=== PATIENT | female | born 1995 ===

== ENCOUNTER 2025-01-04 08:04 | Emergency (ER) | payer MEDICAID, SELFPAY ==
[2025-01-04 08:05] VITALS: BMI 15.4
[2025-01-04 08:10] VITALS: BP 123/76; PULSE 78; RESP 16; TEMP 36.6; O2SAT 99; BMI 14.6
--- NOTE | 2025-01-04 08:24 | PD.EDPREG ---
ED OB Contraction Preg RMI/HPI General Chief complaint: General Adult/Misc Complain Stated complaint: 7WKS W/BROWN DISCHARGE Time Seen by Provider: 01/04/25 08:14 Source: patient Arrival date/time: 01/04/25 08:04 This is a [id number]-year-old female presents emergency department complaints of brown discharge vaginal. Reports she is approximately 7 weeks gestation denies any pelvic cramping no abdominal pain. No dysuria no fever or hematuria. Related Data Previous Rx's ?Medication ?Instructions ?Recorded diphenhydramine HCl 25 mg capsule 25 mg PO TID PRN allergic reaction 06/02/20 (Benadryl) #30 caps prednisone 20 mg tablet 20 mg PO QDAY #4 tabs 06/02/20 Allergies Allergy/AdvReac Type Severity Reaction Status Date / Time No Known Allergies Allergy Verified 01/04/25 21:53 Review of Systems Review of Systems Systems Reviewed: All systems reviewed, normal except as documented Narrative Review of Systems: Gen: No fever, no chills, no weight loss EYES: No discharge, no visual changes, no pain HEENT: No ear pain, no congestion, no sore throat PULM: No shortness of breath, no cough, no congestion CV: No chest pain, no dyspnea on exertion, no palpitations GI: No nausea, no vomiting, no diarrhea, no pain, no constipation : No frequency, no urgency,? no dysuria Musc/skel: No joint pain, no back pain Skin: No rash? Psyc: No hallucinations, no depression Heme/Lymph: No easy bleeding or bruising tendencies Neuro: No weakness, no headache ED Exam Narrative Physical exam: General: Sittiing in Exam table in no acute distress, answering questions appropriately HENT: normocephalic, atraumatic, EOMI, PERRLA, moist mucous membranes Chest: chest wall is nontender Cardiac: regular rate and rhythm, normal S1 and S2, no murmurs, rubs, or gallops, capillary refill ?2 seconds Pulmonary: clear to auscultation bilaterally, no wheezing, crackles, or rhonchi Abdominal: active bowel sounds, soft, nontender, nondistended Neuro: A&OX3, CN II-XII intact, sensation grossly intact bilaterally in UE and LE. Skin: no rashes, no ecchymosis Ext: no lower extremity edema Course Quality Measures none Orders Category Date Time Status US OB <= 14 weeks fetus Stat Exams 01/04/25 08:22 Completed ABO/RH Type Stat Lab 01/04/25 08:37 Completed Beta HCG,Quantitative Stat Lab 01/04/25 08:37 Completed CBC Stat Lab 01/04/25 08:37 Completed Comprehensive Metabolic Panel Stat Lab 01/04/25 08:37 Completed Urinalysis Stat Lab 01/04/25 08:34 Completed Urine Culture Stat Lab 01/04/25 08:34 Received Vital Signs Vital signs: Vital Signs Temperature 97.9 F 01/04/25 08:10 Pulse Rate 78 01/04/25 08:10 Respiratory Rate 16 01/04/25 08:10 Blood Pressure 123/76 01/04/25 08:10 Pulse Oximetry (%) 99 01/04/25 08:10 Oxygen Delivery Method Room Air 01/04/25 08:10 OB/Uterine Contractions Patient data External records reviewed:: [facility] previous records Clinical information provided by:: patient Social determinants that could affect healthcare access:: none Patient has the following chronic illnesses:: no How is presenting disease/condition affected by chronic disease/condition?: no chronic disease Evaluation data The following diagnostics were reviewed and interpreted by me:: lab results and radiology exam(s) Lab and/or radiology exams considered but not ordered:: no Interpretation Summary: Examination: Complete OB ultrasound, less than 14 weeks, transabdominal Date and time of exam: January 04, 2025 0908 hours INDICATIONS: Vaginal bleeding beginning 2 days ago Technique: Obstetrical ultrasound images less than 14 weeks performed via transabdominal imaging Findings: Uterus 6.2 cm, pole 0.3 cm corresponds to 5 week 6 day gestational age No cardiac motion Subchorionic hemorrhage 5 x 4 x 5 mm Right ovary 2.9 cm arterial flow Left ovary 2.8 cm arterial flow IMPRESSION: Intrauterine gestation corresponding to 5 week 6 day gestational age No cardiac motion Small subchorionic hemorrhage Recommend short-term follow-up transvaginal pelvic sonography Medications / Prescriptions Medications or Prescriptions considered but not ordered:: no Medication administrations:: no Consultations Consultation(s) initiated? (list below): No Diagnosis OB Contractions Differential Diagnosis: normal delivery at term and other (uti tract infection, miscarriage, threatened , tubal ) Most likely diagnosis given after review of the tests above:: Subchorionic hemorrhage Admission Indicated Admission indicated?: not indicated Explain why admission is indicated or not indicated:: no Admission Request Was there a request for admission?: No Disposition Plan Disposition Plan: Discharge Discharge Attestation Discharge Attestation: The patient and all family members were given an opportunity to ask questions and understood the discharge instructions. Discharge instructions specifically effects, indications for sooner follow up or return to the emergency department, and the expected course of current diagnosis. Patient condition: Stable Discharge Plan Plan Patient Disposition: HOME (Self Care) Patient condition on transfer: Stable Prescriptions/Referrals Prescriptions/Med Rec: No Action prednisone 20 mg tablet 20 mg PO QDAY Qty: 4 0RF diphenhydramine HCl [Benadryl] 25 mg capsule 25 mg PO TID PRN (Reason: allergic reaction) Qty: 30 0RF Referrals: Brandon France MD [Primary Care Provider] - In 1 week Problem List Clinical Impression: Subchorionic hemorrhage in first trimester Patient/Caregiver Discharge Instructions Discharge Activity: activity as tolerated Education Materials: Bleeding During Early Additional Instructions: Your ultrasound shows a small subchorionic hemorrhage-which is a small collection of blood between uterine lining and the fetus. At experience bleeding light bleeding or spotting with this Is very important that you keep an appointment with your LITHOGRAPHER APPRENTICE or primary care physician for follow-up care you may need a repeat ultrasound for follow-up Return to the emergency department if you have any worsening symptoms or change in condition for Print Language: Togolese Stand Alone Forms: Ailyn Award Info., Patient Portal Info Letter PA/MUSA Supervising Physician BRYAN/MUSA Supervising Physician: Dr arzola
[2025-01-04 08:40] LABS: Collection Type, Urine Clean Catch
[2025-01-04 08:52] LABS: Basophils % (Auto) 1 % (0-2.5); Eosinophils # (Auto) 0.1 Thou/mm3 (0.0-0.5); Eosinophils % (Auto) 2 % (0-10); Hemoglobin 13.6 g/dL (12.0-16.0); Immature Granulocytes % (Auto) 1 % (0-0); Immature Granulocytes Auto 0.04 Thou/mm3 (0.00-0.00); Lymphocytes # (Auto) 2.3 Thou/mm3 (1.0-4.8); Lymphocytes % (Auto) 30 % (10-50); Mean Corpuscular HGB Conc 34.9 g/dl (31.0-37.0); Mean Corpuscular Hemoglobin 30.4 pg (25.0-35.0); Mean Corpuscular Volume 87 fL (80-100); Monocytes # (Auto) 0.6 Thou/mm3 (0.0-0.8); Monocytes % (Auto) 8 % (0-12); Neutrophils # (Auto) 4.5 Thou/mm3 (1.8-7.7); Neutrophils % (Auto) 59 % (37-80); Nucleated Red Blood Cell % 0 /100 WBC (0); Platelet Count 329 Thou/mm3 (140-440); RDW Standard Deviation 40.7 fL (36.4-46.3); Red Blood Count 4.48 Miln/mm3 (4.00-5.20); White Blood Count 7.7 Thou/mm3 (3.6-11.0)
[2025-01-04 09:02] LABS: Bacteria,Urine Rare; Bilirubin,Urine Negative (Negative); Blood,Urine Negative (Negative); Clarity,Urine Clear (Clear/Hazy); Color,Urine Lt-Yellow (Lt Yel-Yel); Glucose, Urine Negative (Negative); Ketones,Urine Negative (Negative); Leukocyte Esterase,Urine Negative (Negative); Nitrite,Urine Negative (Negative); PH,Urine 6.5 (5.0-7.0); Protein,Urine Negative (Neg - Trace); RBC,Urine < 1 /hpf (0-3); Specific Gravity,Urine 1.009 (1.001-1.035); Squamous Epithelial Cell,Urine 2 /hpf (0-5); Urobilinogen,Urine Negative mg/dL (0.0-1.0); WBC,Urine < 1 /hpf (0-5)
[2025-01-04 09:49] LABS: Alanine Aminotransferase 20 U/L (10-49); Albumin, Serum 4.8 gm/dL (3.5-5.0); Albumin/Globulin Ratio 1.5 (1.2-2.2); Alkaline Phosphatase 38 U/L (46-116); Anion Gap 8 (7-16); Aspartate Amino Transferase 20 U/L (0-34); BUN/Creatinine Ratio 10 Ratio (12-20); Beta HCG,Quantitative 6561 mIU/mL (<5.0); Bilirubin,Total 1.4 mg/dL (0.3-1.2); Blood Urea Nitrogen 8 mg/dL (9-23); Calcium 9.7 mg/dL (8.3-10.6); Calcium (Corrected) 9.7 mg/dL (8.5-10.1); Carbon Dioxide 22.6 mMol/L (20.0-31.0); Chloride 109 mMol/L (98-107); Creatinine (Component) 0.8 mg/dL (0.6-1.3); Estimated Creatinine Clearance 66.3 mL/min (>60); Globulin 3.3 gm/dL (2.3-3.5); Glucose 96 mg/dL (74-106); Osmolality,Calculated 277 (275-295); Potassium 3.9 mMol/L (3.4-5.1); Sodium 140 mMol/L (136-145); Total Protein 8.1 gm/dL (5.7-8.2); eGFR > 60 See Note
== END 2025-01-04 12:49 | disposition home or self-care (01) ==
PROVIDERS: Nurse Practitioner Primary Care; Emergency Provider Family Medicine; PCP Family Medicine
DX: O20.8 Other hemorrhage in early pregnancy (principal); Z3A.01 Less than 8 weeks gestation of pregnancy
CPT/HCPCS: 36415; 76801; 80053; 81001; 84702; 85025; 86900; 86901; 87086; 99284

== ENCOUNTER 2025-01-04 21:53 | Emergency (ER) | payer MEDICAID, SELFPAY ==
[2025-01-04 21:54] VITALS: BMI 15.4
[2025-01-04 23:17] VITALS: BP 105/78; PULSE 99; RESP 20; TEMP 36.7; O2SAT 100
--- NOTE | 2025-01-05 05:39 | EDNOTE_ITS ---
ED OB Contraction Preg RMI/HPI General Chief complaint: Vaginal Bleeding Stated complaint: VAGINAL BLEEDING, 5 WKS Time Seen by Provider: 01/04/25 23:23 Arrival date/time: 01/04/25 21:53 29F at approximately 5 weeks presents to ED with 2 days of vaginal spotting. Patient was here earlier today with US showing IUP but no FHTs. Beta HCG WNLs. Limitations: no limitations Related Data Previous Rx's ?Medication ?Instructions ?Recorded diphenhydramine HCl 25 mg capsule 25 mg PO TID PRN all ergic reaction 06/02/20 (Benadryl) #30 caps prednisone 20 mg tablet 20 mg PO QDAY #4 tabs Allergies Allergy/AdvReac Type Severity Reaction Status Date / Time No Known Allergies Allergy Verified 01/04/25 21:53 Review of Systems Review of Systems Systems Reviewed: All systems reviewed, normal except as documented Constitutional Constitutional: Reports system reviewed and no additional complaints, except as documented, Denies fever(s) and Denies headache(s) ENT Ears, Nose, Mouth, and Throat: Denies disequilibrium and Denies headache(s) Cardiovascular Cardiovascular: Reports system reviewed and no additional complaints, except as documented, Denies chest pain and Denies dyspnea Respiratory Respiratory: Reports system reviewed and no additional complaints, except as documented, Denies cough and Denies dyspnea Gastrointestinal Gastrointestinal: Reports system reviewed and no additional complaints, except as documented, Denies abdominal pain, Denies nausea and Denies vomiting Genitourinary Genitourinary: Reports as per HPI and Reports abnormal vaginal bleeding Neurologic Neurologic: Reports system reviewed and no additional complaints, except as documented, Denies confusion, Denies disequilibrium and Denies headache(s) Psychiatric Psychiatric: Denies confusion Past Medical History Social History SMOKING STATUS: Never smoker ED Exam General Limitations: Present no limitations General appearance: Present alert and in no apparent distress Head Head exam: Present atraumatic Eye Eye exam: Present normal appearance, PERRL and EOMI ENT ENT exam: Present normal exam, normal oropharynx and mucous membranes moist Neck Neck exam: Present normal inspection, full ROM and trachea midline Chest Chest inspection: Present normal inspection and symmetric chest wall rise Respiratory Respiratory exam: Present normal lung sounds bilaterally Cardiovascular Cardiovascular exam: Present regular rate, normal rhythm and normal heart sounds Abdominal Exam Abdominal exam: Present soft and normal bowel sounds Extremities Exam Extremities exam: Present normal inspection and full ROM Back Exam Back exam: Present normal inspection and full ROM Neurological Exam Neurological exam: Present alert, oriented X3 and CN II-XII intact Psychiatric Psychiatric exam: Present normal affect and normal mood Skin Skin exam: Present warm, dry, intact and normal color Course Quality Measures none Vital Signs Vital signs: Vital Signs Temperature 98.0 F 01/04/25 23:17 Pulse Rate 99 01/04/25 23:17 Respiratory Rate 20 01/04/25 23:17 Blood Pressure 105/78 01/04/25 23:17 Pulse Oximetry (%) 100 01/04/25 23:17 Oxygen Delivery Method Room Air 01/04/25 23:17 O2 at 100% on RA and WNLs Vaginal Bleeding MDM Narrative MDM Narrative: 29F at approximately 5 weeks presents to ED with 2 days of vaginal spotting. Patient was here earlier today with US showing IUP but no FHTs. Beta HCG WNLs. Physical exam reveals well-appearing female. Patient is afebrile, calm, and alert. Engineering Professionals given about trending HCG +/- US in 2-3 days. Patient data External records reviewed:: [facility] previous records Clinical information provided by:: patient Social determinants that could affect healthcare access:: none Patient has the following chronic illnesses:: none How is presenting disease/condition affected by chronic disease/condition?: no chronic disease Evaluation data The following diagnostics were reviewed and interpreted by me:: other (specify) (none) Lab and/or radiology exams considered but not ordered:: not ordered Interpretation Summary: n/a Medications / Prescriptions Medications or Prescriptions considered but not ordered:: not ordered Medication administrations:: n/a Consultations Consultation(s) initiated? (list below): No Diagnosis Vaginal Bleeding Differential Diagnosis: missed , threatened , dysfunctional uterine bleeding, menometrorrhagia, incomplete , ectopic without intrauterine , vaginal bleeding and other (threatened miscarriage) Most likely diagnosis given after review of the tests above:: threatened miscarriage Admission Indicated Admission indicated?: not indicated Admission Request Was there a request for admission?: No Disposition Plan Disposition Plan: Discharge Discharge Attestation Discharge Attestation: The patient and all family members were given an opportunity to ask questions and understood the discharge instructions. Discharge instructions specifically effects, indications for sooner follow up or return to the emergency department, and the expected course of current diagnosis. Patient condition: Stable Discharge Plan Plan Patient Disposition: HOME (Self Care) Disposition Comment: Stable Prescriptions/Referrals Prescriptions/Med Rec: No Action prednisone 20 mg tablet 20 mg PO QDAY Qty: 4 0RF diphenhydramine HCl [Benadryl] 25 mg capsule 25 mg PO TID PRN (Reason: allergic reaction) Qty: 30 0RF Problem List Clinical Impression: Subchorionic hemorrhage in first trimester, Miscarriage, threatened, early Patient/Caregiver Discharge Instructions Education Materials: ED Possible Miscarriage ... Additional Instructions: Please follow-up with PCP/OBGYN within 24-48 hours and return immediately if symptoms worsen. Recommend repeat HCG +/- US in 2-3 days. Print Language: Azerbaijani Stand Alone Forms: Work/School Release, Patient Portal Info Letter PA/RATTLING MACHINE TENDER Supervising Physician RBYAN/RATTLING MACHINE TENDER Supervising Physician: Dr. Ricketts
== END 2025-01-04 23:36 | disposition home or self-care (01) ==
PROVIDERS: Emergency Provider Emergency Medicine; PCP Family Medicine
DX: O20.8 Other hemorrhage in early pregnancy (principal); Z3A.01 Less than 8 weeks gestation of pregnancy
CPT/HCPCS: 99281

== ENCOUNTER 2025-01-08 11:31 | Outpatient (AMB) | payer MEDICAID, SELFPAY ==
[2025-01-08 11:44] VITALS: BP 107/78; PULSE 88; RESP 18; TEMP 36.5; O2SAT 99; BMI 15.1
--- NOTE | 2025-01-08 11:44 | AMB.OBVISIT ---
Vital Signs 01/08/25 11:44 Height 1.63 m Height Method Stated Weight 40.171 kg Weight Measurement Method Standing Scale BMI 15.1 BP 107/78 Blood Pressure Source Automatic Cuff Blood Pressure Location Left Upper Arm Position Sitting Respiration 18 Pulse 88 Pulse Source Monitor Temp 97.7 F Temp Source Oral Pulse Oximetry (%) 99 Oxygen Delivery Method Room Air Allergies/Home Meds Allergies & Medications Allergies No Known Allergies Allergy (Verified 01/15/25 11:45) Medication Reconciliation diphenhydramine HCl 25 mg capsule (Benadryl) 25 mg PO TID PRN allergic reaction #30 caps 06/02/20 [Rx Confirmed 01/15/25] prednisone 20 mg tablet 20 mg PO QDAY #4 tabs 06/02/20 [Rx Confirmed 01/15/25] Intake Visit Data Collection New Patient or Established: Established Patient (seen at [facility] within 3 years) Reason for Visit:: OBC Seen by Clinical Staff ONLY (RN/MA): No Housekeeping Cleaner Required: No Do You Feel Safe at Home: Yes Authorities Contacted: N/A PCP or OBGYN visit in last 3 months: Yes Date of Last PCP or OBGYN visit: 01/04/25 Hx Now: Yes Are you currently on any form of Control: No Pain Present Currently: No Pain Scale Used: Pinedo-Weeks/Numerical Pain scale:: 0 Smoking Status Smoking Status: Never smoker Questionnaires Covid-19 Vaccine Questionnaire Has patient been vacinated for Covid-19 Have you been vacinated for Covid-19: Yes PHQ-9 PHQ-2 Over the last 2 weeks, how often have you been bothered by any of the following problems? 1. Little interest or pleasure in doing things: not at all 2. Feeling down, depressed, or hopeless: not at all Total score: 0 PHQ-9 3. Trouble falling or staying asleep, or sleeping too much: Not at all 4. Feeling tired or having little energy: Not at all 5. Poor appetite or overeating: Not at all 6. Feeling bad about yourself - or that you are a failure or have let yourself or your family down: Not at all 7. Trouble concentrating on things, such as reading the newspaper or watching television: Not at all 8. Moving or speaking so slowly that other people could have noticed? - Or the opposite - being so fidgety or restless that you have been moving around a lot more than usual: not at all 9. Thoughts that you would be better off or of hurting yourself in some way: Not at all Total score: 0 If you checked off any problems, how difficult have these problems made it for you to do your work, take care of things at home, or get along with other people?: not difficult at all Source: Developed by Drs. Onofre Vick, Sadie Steinberg, Vince Castillo and colleagues, with an educational tip from [employer]. Depression screen completed yes Social History Living Situation History Marital Status: Single Lives With: Family Housing: House Tobacco History Smoking Status: Never smoker Alcohol History Alcohol Intake: Never Domestic Abuse History Do You Feel Safe at Home: Yes Past Medical History Past Medical History Have you ever been diagnosed with any of the following: History of Present Illness HPI Narrative Emy Cruz presents for follow-up after a recent ultrasound. She reports ongoing brown spotting, which she describes as similar to the last part of a menstrual period. The patient underwent an ultrasound yesterday, which showed an empty uterus consistent with a miscarriage. The patient states that the spotting is continuing but has decreased in intensity. She is unsure about her future plans regarding or control, expressing uncertainty due to recent events. The patient has not reported any other symptoms or concerns during this follow-up. Review of Systems Review of Systems Systems Reviewed: All systems reviewed, normal except as documented Exam General Limitations: no limitations General Appearance: alert, in no apparent distress, comfortable, cooperative, healthy appearing, well developed and well groomed Head Head exam: atraumatic, normocephalic and normal inspection Chest Chest inspection: Present normal inspection and symmetric chest wall rise Abdominal Abdominal exam: Present soft and normal bowel sounds Psych Psychiatric exam: Present normal affect and normal mood Skin Skin exam: Present warm, dry, intact and normal color Assessment & Plan Diagnosis / Problem List (1) Threatened : Status: Acute (2) Subchorionic hemorrhage in first trimester: Status: Acute Plan Emy Cruz presents with a recent miscarriage, confirmed by ultrasound showing an empty uterus, and currently experiencing brown spotting. Miscarriage Assessment: Ultrasound performed yesterday revealed an empty uterus, consistent with a completed miscarriage. Patient reports ongoing brown spotting, similar to the end of a menstrual period. This clinical presentation aligns with the expected course following a miscarriage. Plan: - Expectant management for the next 2-3 days - Anticipate complete cessation of bleeding within 2-3 days - Expect next regular menstrual period in approximately one month - Schedule follow-up blood test in one month to confirm hormone (hCG) has returned to zero Office Procedures OB Clinic LOC & Office Proc's Nursing/Assessment Patient Status: Established Patient OB Clinic Nursing Assessment: BP Monitoring, Medication Reconciliation, Update PMH in EMR and Vital Signs OB Clinic Coordination of Care: Consent,records obtained, informed consent, Education Simp Pt/Fam, Results/Orders obtained and Staff clarify orders Established Patient Charge Established Patient Point Assignment: 80 Established Patient Point Charge: EP Level 3 (80-115)
== END 2025-01-08 11:54 | disposition home or self-care (01) ==
LOC: HODSOBC 11:31
PROVIDERS: PCP Family Medicine; Referring Provider Family Medicine; Supervising Provider Obstetrics & Gynecology; Visit Provider Obstetrics & Gynecology
DX: O20.0 Threatened abortion (principal); Z3A.00 Weeks of gestation of pregnancy not specified
CPT/HCPCS: 99213; G0463

== ENCOUNTER → 2025-01-08 | Outpatient (CLI) | payer MEDICAID, SELFPAY ==
--- NOTE | 2025-01-08 | XR_ITS ---
Examination: OB Transvaginal ultrasound of the pelvis, complete Technique: Transvaginal sonographic images pelvis performed using ferguson scale imaging Exam date and time: January 08, 2025 1318 hours INDICATIONS: Vaginal bleeding beginning 3 days ago, intrauterine gestation 5 weeks 6 days no cardiac motion on ultrasound January 04, 2025 FINDINGS: Uterus 8.3 cm endometrial stripe 0.6 cm No intrauterine gestation Right ovary 3.2 cm arterial flow Left ovary 3.7 cm arterial flow IMPRESSION: No current intrauterine gestation consistent with completed spontaneous .
[2025-01-08 14:55] LABS: Beta HCG,Quantitative 599 mIU/mL (<5.0)
== END | disposition home or self-care (01) ==
PROVIDERS: PCP Obstetrics & Gynecology; Referring Provider Obstetrics & Gynecology; Visit Provider Obstetrics & Gynecology
DX: O20.0 Threatened abortion (principal)
CPT/HCPCS: 36415; 76817; 84702

== ENCOUNTER 2025-01-09 13:19 | Outpatient (AMB) | payer MEDICAID, SELFPAY ==
--- NOTE | 2025-01-09 13:28 | AMB.GYNCLNOT ---
Allergies/Home Meds Allergies & Medications Allergies No Known Allergies Allergy (Verified 01/15/25 11:45) Medication Reconciliation diphenhydramine HCl 25 mg capsule (Benadryl) 25 mg PO TID PRN allergic reaction #30 caps 06/02/20 [Rx Confirmed 01/15/25] prednisone 20 mg tablet 20 mg PO QDAY #4 tabs 06/02/20 [Rx Confirmed 01/15/25] Intake Visit Data Collection New Patient or Established: Established Patient (seen at [facility] within 3 years) Reason for Visit:: Miscarriage Consent obtained for Telemed Visit: Yes Seen by Clinical Staff ONLY (RN/MA): No Tax Compliance Manager Required: No Do You Feel Safe at Home: Yes Authorities Contacted: N/A PCP or OBGYN visit in last 3 months: Yes Date of Last PCP or OBGYN visit: 01/08/25 Hx Now: No Are you currently on any form of Control: No Pain Present Currently: No Pain Scale Used: Pinedo-Weeks/Numerical Pain scale:: 0 Smoking Status Smoking Status: Never smoker 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 1. Little interest or pleasure in doing things: not at all 2. Feeling down, depressed, or hopeless: not at all Total score: 0 PHQ-9 3. Trouble falling or staying asleep, or sleeping too much: Not at all 4. Feeling tired or having little energy: Not at all 5. Poor appetite or overeating: Not at all 6. Feeling bad about yourself - or that you are a failure or have let yourself or your family down: Not at all 7. Trouble concentrating on things, such as reading the newspaper or watching television: Not at all 8. Moving or speaking so slowly that other people could have noticed? - Or the opposite - being so fidgety or restless that you have been moving around a lot more than usual: not at all 9. Thoughts that you would be better off or of hurting yourself in some way: Not at all Total score: 0 If you checked off any problems, how difficult have these problems made it for you to do your work, take care of things at home, or get along with other people?: not difficult at all Source: Developed by Drs. Onofre Vick, Sadie Steinberg, Vince Castillo and colleagues, with an educational tip from [employer]. Depression screen completed yes Social History Living Situation History Lives With: Family Housing: House Tobacco History Smoking Status: Never smoker Alcohol History Alcohol Intake: Never Domestic Abuse History Do You Feel Safe at Home: Yes Past Medical History Past Medical History Have you ever been diagnosed with any of the following: History of Present Illness HPI Narrative Emy Cruz presents for follow-up after a recent ultrasound. She reports ongoing brown spotting, which she describes as similar to the last part of a menstrual period. The patient underwent an ultrasound yesterday, which showed an empty uterus consistent with a miscarriage. The patient states that the spotting is continuing but has decreased in intensity. She is unsure about her future plans regarding or control, expressing uncertainty due to recent events. The patient has not reported any other symptoms or concerns during this follow-up. Obstetric History - GPAL: A1 L0 - Current status: Not , recent miscarriage Review of Systems Review of Systems Systems Reviewed: All systems reviewed, normal except as documented Exam General Limitations: no limitations General Appearance: alert, in no apparent distress, comfortable, cooperative, healthy appearing, well developed and well groomed Chest Chest inspection: Present normal inspection and symmetric chest wall rise Abdominal Abdominal exam: Present soft and normal bowel sounds Psych Psychiatric exam: Present normal affect and normal mood Skin Skin exam: Present warm, dry, intact and normal color Assessment & Plan Diagnosis / Problem List (1) Threatened : Status: Acute (2) Subchorionic hemorrhage in first trimester: Status: Acute Plan Miscarriage, vaginal spotting Assessment Patient has experienced a miscarriage, confirmed by ultrasound showing an empty uterus. She reports ongoing brown spotting, consistent with the final stages of menstrual bleeding. The patient is currently undecided about future plans or contraception options. Plan Monitor for complete cessation of bleeding within the next 2-3 days. Expect next regular menstrual period in approximately one month. Perform a blood test for hormone (hCG) in about one month to confirm levels have returned to zero. Patient to consider family planning options and inform the clinic of decision regarding control or attempts. If control is desired, it can be initiated within the next 15 days. Educated the patient on labor signs, including regular contractions, lower back pain, and changes in vaginal discharge. Advised avoiding heavy lifting and getting adequate rest. Instructed to contact the office immediately if any signs occur. Discussed the importance of a balanced diet rich in folic acid, iron, and calcium, and provided a list of recommended and to-avoid foods. Emphasized avoiding high-sugar foods to reduce gestational diabetes risk. Encouraged hydration and frequent, small meals for energy.. Office Procedures OB Clinic LOC & Office Proc's Nursing/Assessment Patient Status: Established Patient OB Clinic Nursing Assessment: Medication Reconciliation and Update PMH in EMR OB Clinic Coordination of Care: Consent,records obtained, informed consent, Education Simp Pt/Fam, Results/Orders obtained and Staff clarify orders Established Patient Charge Established Patient Point Assignment: 50 Telehealth If patient is seen using Teleconference methods, complete New/Est section, but DO NOT eileen points only eileen the correct Telemed visit type Telemed Phone/Video with patient at home & Dr,PA,[facility] SPECIALIST: Yes
== END 2025-01-09 13:31 | disposition home or self-care (01) ==
LOC: HODSOBC 13:19
PROVIDERS: Supervising Provider Obstetrics & Gynecology; Visit Provider Obstetrics & Gynecology
DX: O20.0 Threatened abortion (principal); Z3A.00 Weeks of gestation of pregnancy not specified
CPT/HCPCS: 99212; Q3014; G0463

== ENCOUNTER 2025-01-15 11:18 | Outpatient (AMB) | payer MEDICAID, SELFPAY ==
[2025-01-15 11:39] VITALS: BP 101/64; PULSE 95; RESP 18; TEMP 36.2; O2SAT 97; BMI 15.2
--- NOTE | 2025-01-15 11:39 | AMB.GYNCLNOT ---
Vital Signs 01/15/25 11:39 Height 1.63 m Height Method Stated Weight 40.483 kg Weight Measurement Method Standing Scale BMI 15.2 BP 101/64 Blood Pressure Source Automatic Cuff Blood Pressure Location Left Upper Arm Position Sitting Respiration 18 Pulse 95 Pulse Source Monitor Temp 97.2 F Temp Source Oral Pulse Oximetry (%) 97 Oxygen Delivery Method Room Air Allergies/Home Meds Allergies & Medications Allergies No Known Allergies Allergy (Verified 01/15/25 11:45) Medication Reconciliation diphenhydramine HCl 25 mg capsule (Benadryl) 25 mg PO TID PRN allergic reaction #30 caps 06/02/20 [Rx Confirmed 01/15/25] prednisone 20 mg tablet 20 mg PO QDAY #4 tabs 06/02/20 [Rx Confirmed 01/15/25] Intake Visit Data Collection New Patient or Established: Established Patient (seen at [facility] within 3 years) Reason for Visit:: ER Follow Up Seen by Clinical Staff ONLY (RN/MA): No Acid Adjuster Required: No Do You Feel Safe at Home: Yes Authorities Contacted: N/A PCP or OBGYN visit in last 3 months: No Hx Now: No Are you currently on any form of Control: No Pain Present Currently: No Pain Scale Used: Pinedo-Weeks/Numerical Pain scale:: 0 Smoking Status Smoking Status: Never smoker 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 1. Little interest or pleasure in doing things: not at all 2. Feeling down, depressed, or hopeless: not at all Total score: 0 PHQ-9 3. Trouble falling or staying asleep, or sleeping too much: Not at all 4. Feeling tired or having little energy: Not at all 5. Poor appetite or overeating: Not at all 6. Feeling bad about yourself - or that you are a failure or have let yourself or your family down: Not at all 7. Trouble concentrating on things, such as reading the newspaper or watching television: Not at all 8. Moving or speaking so slowly that other people could have noticed? - Or the opposite - being so fidgety or restless that you have been moving around a lot more than usual: not at all 9. Thoughts that you would be better off or of hurting yourself in some way: Not at all Total score: 0 If you checked off any problems, how difficult have these problems made it for you to do your work, take care of things at home, or get along with other people?: not difficult at all Source: Developed by Drs. Onofre Vick, Sadie Steinberg, Vince Castillo and colleagues, with an educational tip from [employer]. Depression screen completed yes Social History Living Situation History Lives With: Family Housing: House Tobacco History Smoking Status: Never smoker Alcohol History Alcohol Intake: Never Domestic Abuse History Do You Feel Safe at Home: Yes Past Medical History Past Medical History Have you ever been diagnosed with any of the following: History of Present Illness HPI Narrative Patient presents for follow-up on a spontaneous miscarriage. She was seen for a telemed visit last week and informed of her ultrasound results. The patient had presented to the emergency room 3 days prior to her ultrasound on 01-08-2025, where a gestational sac corresponding to 5 weeks and 6 days without cardiac motion and with subchorionic hemorrhage was observed. Patient reports that her bleeding has completely stopped. She mentions sometimes not feeling well, which is impacting her ability to work. The patient's mother, who is present during the visit, expresses that the patient wanted to keep the . No other specific symptoms or concerns are reported by the patient. She had an emergency room visit, followed by two ultrasounds (on 01-04-2025 and 01-08-2025) and quantitative beta-HCG tests. The most recent ultrasound on 01-08-2025 showed an empty uterus, consistent with a completed spontaneous . She is a A1 L0 patient who experienced a spontaneous miscarriage at approximately 6 weeks gestation. She is currently not . Patient is taking a women's multivitamin. She requests time off work due to not feeling well. Reports no vaginal bleeding. Diagnostic Test Results and Labs: - Ultrasound (01/08/2025): Uterus measuring 8.3 cm. Endometrial stripe 0.6 cm. No intrauterine gestation. Right ovary 3.2 cm. Left ovary 3.7 cm. - Ultrasound (01/04/2025): Gestational sac corresponding to 5 weeks and 6 days. No cardiac motion. Subchorionic hemorrhage present. - Quantitative beta-HCG: - 01/04/2025: 6561 - 01/08/2025: 599 Review of Systems Review of Systems Systems Reviewed: All systems reviewed, normal except as documented Exam General Limitations: no limitations General Appearance: alert, in no apparent distress, comfortable, cooperative, healthy appearing, well developed and well groomed Head Head exam: atraumatic, normocephalic and normal inspection Chest Chest inspection: Present normal inspection and symmetric chest wall rise Abdominal Abdominal exam: Present soft and normal bowel sounds Psych Psychiatric exam: Present normal affect and normal mood Skin Skin exam: Present warm, dry, intact and normal color Assessment & Plan Diagnosis / Problem List (1) Subchorionic hemorrhage in first trimester: Status: Acute (2) Threatened : Status: Acute Plan Completed Spontaneous : - Provide one week off work (patient's request). - Order repeat beta-HCG test in one week. - Recommend [id number] women's multivitamin. - Follow up as needed. Assessment: - Spontaneous miscarriage confirmed by serial ultrasounds and beta-HCG levels. - Initial ultrasound (01/04/2025): gestational sac at 5 weeks 6 days, no cardiac motion, subchorionic hemorrhage. - Follow-up ultrasound (01/08/2025): empty uterus measuring 8.3 cm, endometrial stripe 0.6 cm. - Beta-HCG levels: 6561 on 01/04/2025, decreased to 599 on 01/08/2025. - Patient reports bleeding has completely stopped. Office Procedures OB Clinic LOC & Office Proc's Nursing/Assessment Patient Status: Established Patient OB Clinic Nursing Assessment: BP Monitoring, Medication Reconciliation, Update PMH in EMR and Vital Signs OB Clinic Coordination of Care: Consent,records obtained, informed consent, Education Simp Pt/Fam and Staff clarify orders Established Patient Charge Established Patient Point Assignment: 75
== END 2025-01-15 11:47 | disposition home or self-care (01) ==
LOC: HODSOBC 11:18
PROVIDERS: Supervising Provider Obstetrics & Gynecology; Visit Provider Obstetrics & Gynecology
DX: Z76.89 Persons encountering health services in other specified circumstances (principal)

== ENCOUNTER → 2025-01-18 | Outpatient (CLI) | payer MEDICAID, SELFPAY ==
[2025-01-18 14:41] LABS: Beta HCG,Quantitative 17 mIU/mL (<5.0)
== END | disposition home or self-care (01) ==
LOC: COPL 13:05
PROVIDERS: PCP Family Medicine; Referring Provider Obstetrics & Gynecology; Visit Provider Obstetrics & Gynecology
DX: O20.0 Threatened abortion (principal)
CPT/HCPCS: 36415; 84702

== ENCOUNTER 2025-06-25 14:16 | Outpatient (AMB) | payer MEDICAID, SELFPAY ==
[2025-06-25 14:43] VITALS: BP 104/70; PULSE 105; RESP 18; TEMP 37.2; O2SAT 99; BMI 13.9
--- NOTE | 2025-06-25 14:43 | AMB.OBINITIA ---
Vital Signs 06/25/25 14:43 Height 1.68 m Height Method Stated Weight 39.122 kg Weight Measurement Method Standing Scale BMI 13.9 BP 104/70 Blood Pressure Source Automatic Cuff Blood Pressure Location Left Upper Arm Position Sitting Respiration 18 Pulse 105 H Pulse Source Monitor Temp 99 F Temp Source Oral Pulse Oximetry (%) 99 Oxygen Delivery Method Room Air Allergies/Home Meds Allergies & Medications Allergies No Known Allergies Allergy (Verified 06/25/25 14:44) Medication Reconciliation diphenhydramine HCl 25 mg capsule (Benadryl) 25 mg PO TID PRN allergic reaction #30 caps 06/02/20 [Rx Confirmed 06/25/25] prednisone 20 mg tablet 20 mg PO QDAY #4 tabs 06/02/20 [Rx Confirmed 06/25/25] Intake Visit Data Collection New Patient or Established: Established Patient (seen at [facility] within 3 years) Reason for Visit:: CARE NEW OB VISIT Seen by Clinical Staff ONLY (RN/MA): No Terminal Supervisor Required: No Do You Feel Safe at Home: Yes Authorities Contacted: N/A PCP or OBGYN visit in last 3 months: Yes Hx Now: Yes Are you currently on any form of Control: No Last menstrual period: 05/08/25 Pain Present Currently: No Pain Scale Used: Pinedo-Weeks/Numerical Pain scale:: 0 Smoking Status Smoking Status: Never smoker Questionnaires Covid-19 Vaccine Questionnaire Has patient been vacinated for Covid-19 Have you been vacinated for Covid-19: No PHQ-9 PHQ-2 Over the last 2 weeks, how often have you been bothered by any of the following problems? 1. Little interest or pleasure in doing things: not at all PHQ-9 3. Trouble falling or staying asleep, or sleeping too much: Not at all 4. Feeling tired or having little energy: Not at all 5. Poor appetite or overeating: Not at all 6. Feeling bad about yourself - or that you are a failure or have let yourself or your family down: Not at all 7. Trouble concentrating on things, such as reading the newspaper or watching television: Not at all 8. Moving or speaking so slowly that other people could have noticed? - Or the opposite - being so fidgety or restless that you have been moving around a lot more than usual: not at all 9. Thoughts that you would be better off or of hurting yourself in some way: Not at all Source: Developed by Drs. Onofre Vick, Sadie Steinberg, Vince Castillo and colleagues, with an educational tip from [employer]. 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 . YUMIKOB Farhan Tobacco History Smoking Status: Never smoker Second Hand Smoke Exposure: No Alcohol History Alcohol Intake: Never Domestic Abuse History Do You Feel Safe at Home: Yes History of Present Illness HPI Narrative The patient is a 29-year-old -0-1-0 presents with her Farhan for a new OB appointment. 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 She has a bachelor's degree. She had a miscarriage in January of this year. She states she is unsure of her last menstrual period. This is a very desired . OB Ultrasound Indication Indication: Size, dates, viability OB Ultrasound Ultrasound technique: transvaginal Gestational sac assessment: Presence, location, size, shape: There is a single live intrauterine with crown-rump length of 5.99 cm corresponding to 12 weeks 3 days and an EDC of 12/26/2024. Cardiac activity is noted at 147 bpm SITE RELIABILITY ENGINEER: Past Medical History Additional Operations/Hospitalizations (year & reason): Pt denies any surgical history. Other Relevant History: Pt denies any chronic medical conditions OB Initial Visit Menstrual History Menstrual reliability: definite Flow: normal Menstrual regularity: regular Monthly: Yes Age at menarche: 14 On control pills at conception: No Associated symptoms (LMP): Reports nausea, fatigue and breast tenderness OB History : 2 Hx Total # of Abortions (Spontaneous & Elective): 1 Infection History & Risk Evaluation History of STDs: none Genetic Screening & History Genetic Screening/Teratology Counseling - Includes patient, baby's father, or anyone in either family with: 1. Patient's age 35 years or older as of estimated date of delivery: No 2. Thalassemia (Tuvaluan, Korean, Mediterranean, or Background); MCV less than 80: No 3. Neural Tube Defect (Meningomyelocele, Spina Bifida, or Anencephaly): No 4. Congenital Heart Defect: No 5. Down Syndrome: No 6. Kaiden-Sachs (Ashkenazi Worship, Cajun, Mauritanian Juab): No 7. Agustin Disease (Ashkenazi Worship): No 8. Familial Dysautonomia (Ashkenazi Worship): No 9. Sickle Cell Disease or Trait (): No 10. Hemophilia or other blood disorders: No 11. Muscular Dystrophy: No 12. Cystic Fibrosis: No 13. Atif's Chorea: No 14. Mental Retardation/Autism: No 15. Other inherited genetic or chromosomal disorder: No 16. Maternal Metabolic Disorder (EG,TYPE 1 Diabetes, PKU): No 17. Patient or baby's father had a child with defects not listed above: No 18. Recurrent loss or a stillbirth: No 19. Medications (including supplements, vitamins, herbs or otc drugs)/illicit/recreational drugs/alcohol since last menstrual period: No 20. Any other: No Infection History 1. Live with someone with TB or exposed to TB: No 2. Rash or viral illness since last menstrual period: No 3. Hepatitis B,C: No Other (see comments) Source: [employer] Review of Systems Constitutional Constitutional: Reports fatigue Comments: Some fatigue and breast tenderness mild nausea and bloating. No severe vomiting. No weight loss. Patient is very thin with a BMI of 14. Gastrointestinal Gastrointestinal: Reports nausea Endocrine Endocrine: Reports fatigue Exam Narrative Physical exam: Patient is thin. Pelvic exam reveals a narrow pelvic outlet. Uterus is anteverted and enlarged approximately 14 weeks size. No adnexal masses. Pap is deferred. General Limitations: no limitations General Appearance: alert, in no apparent distress, comfortable, cooperative, healthy appearing and well groomed Chest Chest inspection: Present normal inspection and symmetric chest wall rise Resp Respiratory exam: Present normal lung sounds bilaterally Card Cardiovascular exam: Present regular rate, normal rhythm and normal heart sounds Abdominal Abdominal exam: Present soft and normal bowel sounds Extremities Extremities exam: Present normal inspection and full ROM Psych Psychiatric exam: Present normal affect and normal mood Skin Skin exam: Present warm, dry, intact and normal color Office Procedures OB Clinic LOC & Office Proc's Nursing/Assessment Patient Status: Established Patient OB Clinic Nursing Assessment: Medication Reconciliation, Update PMH in EMR and Vital Signs OB Clinic Coordination of Care: Complex Care and Chronic Disease 1-5, Consent,records obtained, informed consent, Education Simp Pt/Fam, Lab and Imaging orders, Results/Orders obtained and Staff clarify orders Special Needs: Heart tones Established Patient Charge Established Patient Point Assignment: 135 Established Patient Point Charge: EP Level 4 (120-155) In Clinic Bedside tests Bedside HCG: Yes Results Urine HCG Urine HCG Positive Last Edit by Patricia Villareal MA on 06/25/25 16:44 Assessment & Plan Diagnosis / Problem List (1) : Status: Acute Qualifiers: Weeks of gestation: 12 weeks Qualified Code(s): Z3A.12 - 12 weeks gestation of Plan: Labs NIPT and official ultrasound ordered. vitamins encouraged. (2) Low body mass index (BMI): Status: Acute Plan: Encouraged maternal weight gain of 30 to 35 pounds this . Patient states she has always been this then. Denies weight loss or severe nausea and vomiting. Patient will try Ensure shakes and protein shakes. Additional Plan Follow Up: 4 Weeks
== END 2025-06-25 15:37 | disposition home or self-care (01) ==
LOC: HODSOBC 14:16
PROVIDERS: PCP Family Medicine; Referring Provider Family Medicine; Supervising Provider Obstetrics & Gynecology; Visit Provider Obstetrics & Gynecology
DX: O09.891 Supervision of other high risk pregnancies, first trimester (principal); O26.11 Low weight gain in pregnancy, first trimester; Z3A.12 12 weeks gestation of pregnancy
CPT/HCPCS: 81025; 99214; G0463

== ENCOUNTER 2025-07-20 10:40 | Outpatient (AMB) | payer MEDICAID, SELFPAY ==
[2025-07-20 10:58] VITALS: BP 104/73; PULSE 97; RESP 18; TEMP 36.9; O2SAT 99; BMI 15.1
--- NOTE | 2025-07-20 10:58 | OBCLNT_ITS ---
Vital Signs 07/20/25 10:58 Height 1.63 m Height Method Measured Weight 40.086 kg Weight Measurement Method Standing Scale BMI 15.1 BP 104/73 Blood Pressure Source Automatic Cuff Blood Pressure Location Left Upper Arm Position Sitting Respiration 18 Pulse 97 Pulse Source Monitor Temp 98.5 F Temp Source Oral Pulse Oximetry (%) 99 Oxygen Delivery Method Room Air Allergies/Home Meds Allergies & Medications Allergies No Known Allergies Allergy (Verified 07/20/25 10:59) Medication Reconciliation diphenhydramine HCl 25 mg capsule (Benadryl) 25 mg PO TID PRN allergic reaction #30 caps 06/02/20 [Rx Confirmed 07/20/25] Intake Visit Data Collection New Patient or Established: Established Patient (seen at [facility] within 3 years) Reason for Visit:: CARE Seen by Clinical Staff ONLY (RN/MA): No Men'S Furnishings Salesperson Required: No Do You Feel Safe at Home: Yes Authorities Contacted: N/A PCP or OBGYN visit in last 3 months: Yes Hx Now: Yes Are you currently on any form of Control: No Pain Present Currently: No Pain Scale Used: Pinedo-Weeks/Numerical Pain scale:: 0 Smoking Status Smoking Status: Never smoker Questionnaires Covid-19 Vaccine Questionnaire Has patient been vacinated for Covid-19 Have you been vacinated for Covid-19: Yes PHQ-9 PHQ-2 Over the last 2 weeks, how often have you been bothered by any of the following problems? 1. Little interest or pleasure in doing things: not at all 2. Feeling down, depressed, or hopeless: not at all Total score: 0 PHQ-9 3. Trouble falling or staying asleep, or sleeping too much: Not at all 4. Feeling tired or having little energy: Not at all 5. Poor appetite or overeating: Not at all 6. Feeling bad about yourself - or that you are a failure or have let yourself or your family down: Not at all 7. Trouble concentrating on things, such as reading the newspaper or watching television: Not at all 8. Moving or speaking so slowly that other people could have noticed? - Or the opposite - being so fidgety or restless that you have been moving around a lot more than usual: not at all 9. Thoughts that you would be better off or of hurting yourself in some way: Not at all Total score: 0 Source: Developed by Drs. Onofre Vick, Sadie Steinberg, Vince Castillo and colleagues, with an educational tip from [employer]. 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 . FOB Farhan Tobacco History Smoking Status: Never smoker Second Hand Smoke Exposure: No Alcohol History Alcohol Intake: Never Domestic Abuse History Do You Feel Safe at Home: Yes Care LETTY Calculator Estimated Delivery Date Method Current WG Current Estimate 01/04/26 Ultrasound #1 16w 0d Other Estimates 01/07/26 LMP (Uncertain) 15w 4d Office Procedures OBC Clinic LOC & Office Proc's Nursing/Assessment Patient Status: Established Patient OB Clinic Nursing Assessment: Medication Reconciliation, Update PMH in EMR and Vital Signs OB Clinic Coordination of Care: Complex Care and Chronic Disease 1-5, Consent,records obtained, informed consent, Education Simp Pt/Fam, 1 Ins Aut horization, Lab and Imaging orders, Results/Orders obtained and Staff clarify orders Special Needs: Heart tones Established Patient Charge Established Patient Point Assignment: 150 Established Patient Point Charge: EP Level 4 (120-155)
== END 2025-07-20 12:01 | disposition home or self-care (01) ==
LOC: HODSOBC 10:40
PROVIDERS: Supervising Provider Obstetrics & Gynecology; Visit Provider Obstetrics & Gynecology
DX: Z34.82 Encounter for supervision of other normal pregnancy, second trimester (principal); Z3A.17 17 weeks gestation of pregnancy
CPT/HCPCS: 99214; G0463

== ENCOUNTER 2025-08-24 15:00 | Outpatient (AMB) | payer MEDICAID, SELFPAY ==
[2025-08-24 15:19] VITALS: BP 101/69; PULSE 94; RESP 18; TEMP 35.7; O2SAT 99; BMI 16.4
--- NOTE | 2025-08-24 15:19 | OBCLNT_ITS ---
Vital Signs 08/24/25 15:19 Height 1.63 m Height Method Stated Weight 43.602 kg Weight Measurement Method Standing Scale BMI 16.4 BP 101/69 Blood Pressure Source Automatic Cuff Blood Pressure Location Left Upper Arm Position Sitting Respiration 18 Pulse 94 Pulse Source Monitor Temp 96.2 F L Temp Source Oral Pulse Oximetry (%) 99 Oxygen Delivery Method Room Air Allergies/Home Meds Allergies & Medications Allergies No Known Allergies Allergy (Verified 08/24/25 15:20) Medication Reconciliation diphenhydramine HCl 25 mg capsule (Benadryl) 25 mg PO TID PRN allergic reaction #30 caps 06/02/20 [Rx Confirmed 08/24/25] omeprazole 20 mg capsule,delayed release 20 mg PO QDAY #30 caps 08/24/25 [Rx] vits no.126-ferrous fum 28 mg iron-folic acid 800 mcg tablet (Classic ) 1 tab PO DAILY 90 days #90 tabs 08/24/25 [Rx] Immunizations Immunizations Flu Vaccine in the Last 12 Months: Yes Date of most recent flu vaccination: 07/18/25 Flu Vaccine Exclusion Criteria: Already Received Care OB Visit Log OB Flowsheet Initial Weight: Not Recorded Date -?-?-?-?-?-?-?-?-?-?-?-?- EGA Weight BP Alb Glu CTX Pres Fundal ht FHR Mov Dilation Station Effacement Hx Notes Visit Note 08/24/25 -?-?-?-?-?-?-?-?-?-?-?-?- 21w 0d 43.602 kg 101/69 21 144 active LETTY Calculator Estimated Delivery Date Method Current WG Current Estimate 01/04/26 Ultrasound #1 21w 2d Other Estimates 01/07/26 LMP (Uncertain) 20w 6d Notes Visit Date: 08/24/25 Last Updated by: Maggie Zamora MD MSAFP is negative / , previous miscarriage / here for follow up PNC/ Has heartburn / will call in omeprazole/ will check for first trimester labs / XY/ Rh positive / rest of the labs are normal and also NIPT is negative / refill pills Office Procedures [facility] LOC & Office Proc's Nursing/Assessment Patient Status: Established Patient OB Clinic Nursing Assessment: Medication Reconciliation, Update PMH in EMR and Vital Signs OB Clinic Coordination of Care: Complex Care and Chronic Disease 1-5, Consent,records obtained, informed consent, Education Simp Pt/Fam, 1 Ins Authorization, Lab and Imaging orders and Results/Orders obtained Special Needs: Heart tones Established Patient Charge Established Patient Point Assignment: 140 Established Patient Point Charge: EP Level 4 (120-155) Assessment & Plan Diagnosis / Problem List (1) : Status: Acute Qualifiers: Weeks of gestation: 12 weeks Qualified Code(s): Z3A.12 - 12 weeks [place] station of (2) Subchorionic hemorrhage in first trimester: Status: Acute (3) Heartburn during : Status: Acute Qualifiers: Trimester: second trimester Qualified Code(s): O26.892 - Other specified related conditions, second trimester; R12 - Heartburn Plan MSAFP is negative / , previous miscarriage / here for follow up PNC/ Has h eartburn / will call in omeprazole/ will check for first trimester labs / XY/ Rh positive / rest of the labs are normal and also NIPT is negative / refill pills Additional Plan Follow Up: 4 Weeks
== END 2025-08-24 16:27 | disposition home or self-care (01) ==
LOC: HODSOBC 15:00
PROVIDERS: Supervising Provider Obstetrics & Gynecology; Visit Provider Obstetrics & Gynecology
DX: O09.892 Supervision of other high risk pregnancies, second trimester (principal); O09.292 Supervision of pregnancy with other poor reproductive or obstetric history, second trimester; O99.891 Other specified diseases and conditions complicating pregnancy; R12 Heartburn; Z3A.21 21 weeks gestation of pregnancy
CPT/HCPCS: 99214; G0463

== ENCOUNTER 2025-09-17 11:06 | Outpatient (AMB) | payer MEDICAID, SELFPAY ==
[2025-09-17 11:28] VITALS: BP 99/67; PULSE 93; RESP 18; TEMP 36.9; O2SAT 98; BMI 16.8
--- NOTE | 2025-09-17 11:28 | OBCLNT_ITS ---
Vital Signs 09/17/25 11:28 Height 1.63 m Height Method Stated Weight 44.679 kg Weight Measurement Method Standing Scale BMI 16.8 BP 99/67 Blood Pressure Source Automatic Cuff Blood Pressure Location Right Upper Arm Position Sitting Respiration 18 Pulse 93 Pulse Source Monitor Temp 98.5 F Temp Source Temporal Artery Scan Pulse Oximetry (%) 98 Oxygen Delivery Method Room Air Allergies/Home Meds Allergies & Medications Allergies No Known Allergies Allergy (Verified 09/17/25 11:28) Medication Reconciliation diphenhydramine HCl 25 mg capsule (Benadryl) 25 mg PO TID PRN allergic reaction #30 caps 06/02/20 [Rx Confirmed 09/17/25] omeprazole 20 mg capsule,delayed release 20 mg PO QDAY #30 caps 08/24/25 [Rx Confirmed 09/17/25] vits no.126-ferrous fum 28 mg iron-folic acid 800 mcg tablet (Classic ) 1 tab PO DAILY 90 days #90 tabs 08/24/25 [Rx Confirmed 09/17/25] omeprazole magnesium 20 mg capsule,delayed release 20 mg PO QDAY #30 caps 09/17/25 [Rx] Immunizations Immunizations Flu Vaccine in the Last 12 Months: Yes Flu Vaccine Exclusion Criteria: Already Received Care OB Visit Log OB Flowsheet Initial Weight: Not Recorded Date -?-?-?-?-?-?-?-?-?-?-?-?- EGA Weight BP Alb Glu CTX Pres Fundal ht FHR Mov Dilation Station Effacement Hx Notes Visit Note 08/24/25 -?-?-?-?-?-?-?-?-?-?-?-?- 21w 0d 43.602 kg 101/69 21 144 active 09/17/25 -?-?-?-?-?-?-?-?-?-?-?-?- 24w 3d 44.679 kg 99/67 24 144 active LETTY Calculator Estimated Delivery Date Method Current WG Current Estimate 01/04/26 Ultrasound #1 24w 3d Other Estimates 01/07/26 LMP (Uncertain) 24w 0d Notes Visit Date: 09/17/25 Last Updated by: Maggie Zamora MD MSAFP is negative / , previous miscarriage / here for follow up PNC/ Has heartburn / will call in omeprazole/ 24.3 weeks today Visit Date: 08/24/25 Last Updated by: Maggie Zamora MD MSAFP is negative / , previous miscarriage / here for follow up PNC/ Has heartburn / will call in omeprazole/ will check for first trimester labs / XY/ Rh positive / rest of the labs are normal and also NIPT is negative / refill pills Office Procedures [facility] Clinic LOC & Office Proc's Nursing/Assessment Patient Status: Established Patient OB Clinic Nursing Assessment: Medication Reconciliation, Update PMH in EMR and V ital Signs OB Clinic Coordination of Care: Complex Care and Chronic Disease 1-5, Education Complex Pt/Fam, Consent,records obtained, informed consent, Lab and Imaging orders, Results/Orders obtained and Staff clarify orders Special Needs: Heart tones Established Patient Charge Established Patient Point Assignment: 140 Established Patient Point Charge: EP Level 4 (120-155) Assessment & Plan Diagnosis / Problem List (1) Heartburn during : Status: Acute Qualifiers: Trimester: second trimester Qualified Code(s): O26.892 - Other specified related conditions, second trimester; R12 - Heartburn (2) Low body mass index (BMI): Status: Acute (3) : Status: Acute Qualifiers: Weeks of gestation: 12 weeks Qualified Code(s): Z3A.12 - 12 weeks gestation of Plan , previous miscarriage / here for follow up PNC/ 24.3 weeks today / follow up in 4 weeks / 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 CBC and RPR Additional Plan Follow Up: 4 Weeks 4 Weeks
== END 2025-09-17 11:54 | disposition home or self-care (01) ==
LOC: HODSOBC 11:06
PROVIDERS: Supervising Provider Obstetrics & Gynecology; Visit Provider Obstetrics & Gynecology
DX: O09.892 Supervision of other high risk pregnancies, second trimester (principal); O26.892 Other specified pregnancy related conditions, second trimester; R12 Heartburn; O09.292 Supervision of pregnancy with other poor reproductive or obstetric history, second trimester; Z3A.24 24 weeks gestation of pregnancy
CPT/HCPCS: 99214; G0463